=== PATIENT | female | born 1940 | race Caucasian/White ===

== ENCOUNTER 2019-01-04 07:44 | Emergency (ER) | payer MEDICARE ==
[~2019-01-04] VITALS: Ht 162.6 cm; Wt 81.7 kg
[~2019-01-04 07:44] MED LIST: ALPR.5; ATOR10; BUSP15; CARB150; CARBLEV25 PO; CLON.5 PO; CODACE30 PO; CODACE60 PO; DIAZ5; FURO20 PO; HYDACE5 PO; IBUHYD PO; LEVCAR2510 PO; LEVSOD125; LEVSOD125 PO; MELO7.5 PO; OXYACE7.5T PO; OXYC40ER; OXYC5; Prevacid Soluta30 MG JT; SIMV40 PO; TRIHEXYPHEN; TRIHEXYPHEN PO; VENL150ER PO; VENL75; VICODIN 5-3001 EACH PO; Zanaflex2 M1 PO; [UNRECOGNIZED DRUG - OTHER] PO; [UNRECOGNIZED DRUG - REMARK]; [UNRECOGNIZED DRUG - REMARK]
[2019-01-04] MEDS ORDERED: HYDR1TAB94 PO (11:21)
== END 2019-01-04 11:30 | disposition home or self-care (01) ==
LOC: ER 07:44
DX: S42.411A Displaced simple supracondylar fracture without intercondylar fracture of right humerus, initial encounter for closed fracture (principal); S00.11XA Contusion of right eyelid and periocular area, initial encounter; E03.9 Hypothyroidism, unspecified; E78.5 Hyperlipidemia, unspecified; Z87.891 Personal history of nicotine dependence; Z88.8 Allergy status to other drugs, medicaments and biological substances; Z79.899 Other long term (current) drug therapy; W01.10XA Fall on same level from slipping, tripping and stumbling with subsequent striking against unspecified object, initial encounter
CPT/HCPCS: 29105; 70450; 73080; 96372-59; 99284-25; A9270-GY; J1170

== ENCOUNTER 2019-01-08 06:59 | Observation (INO) | payer MEDICARE ==
[~2019-01-08] VITALS: Ht 162.6 cm; Wt 79.5 kg
[~2019-01-08 06:59] MED LIST changes: +HYDR1TAB94 PO
--- NOTE | 2019-01-08 13:01 | NUR ---
Ambulatory in Day Surgery. History, Chart, Medications and Allergies reviewed before start of procedure. Lungs clear T/O to Auscultation. Patient confirms NPO status and agrees with scheduled surgery. Pre-Op teaching done. Pt verbalizes understanding.
--- NOTE | 2019-01-08 18:31 | NUR ---
DAY SURGERY RN | Admit Call to Dr. Malave regarding patient O2 sats at 90% on 4 L NC since this RN can't discharge patient with sats at that level (174). Dr. Malave stated that he "couldn't admit the patient, but could consult with the hospitalist". Order placed for hospitalist consult. Krysten PERFORATOR OPERATOR OIL WELL with Dr. Krause came and saw the patient and decided to admit (ER stated consult doctor was Dr. Dowd). Call placed to nursing loading supervisor for room placement at 1800. Patient currently at 3 L NC satting at 93%.
--- NOTE | 2019-01-08 18:42 | NUR ---
"DAY SURGERY RN | TOLERATING PO FLUIDS"
--- NOTE | 2019-01-08 19:22 | NUR ---
DAY SURGERY RN | TO FLOOR This RN gave report to Ilsa Fam RN. Patient sitting up in bed tolerating PO fluids. States "in a lot of pain". A/O, but forgetful. Family at bedside. Good circulation in fingers. Belonings returned to patient. Treated for pain per Anesthesia orders. Taken to floor via gurnery by this RN. 3 L NC.
[2019-01-08 20:41] LABS: BASOPHILS ABSOLUTE AUTO 0.02 K/mm3 (0.00-0.23); BASOPHILS PERCENT AUTO 0 % (0-2); EOSINOPHILS PERCENT AUTO 0 % (0-6); Hematocrit 36.8 % (33.0-51.0); Hemoglobin 12.3 g/dL (11.5-16.0); IMMATURE GRAN ABSOLUTE AUTO 0.08 K/mm3 (0.00-0.10); IMMATURE GRAN PERCENT AUTO 1 % (0-1); LYMPHOCYTES ABSOLUTE AUTO 0.52 K/mm3 (0.84-5.20); LYMPHOCYTES PERCENT AUTO 3 % (21-46); MONOCYTES ABSOLUTE AUTO 0.75 K/mm3 (0.16-1.47); MONOCYTES PERCENT AUTO 5 % (4-13); Mean Corpuscular HGB Conc 33.4 g/dL (31.5-36.5); Mean Corpuscular Volume 93 fL (80-100); Mean Platelet Volume 10.8 fL (9.1-12.4); NEUTROPHILS PERCENT AUTO 92 % (41-73); Platelet Count 355 K/mm3 (150-400); RDW Coefficient Variation 12.4 % (11.7-14.2); RDW Standard Deviation 42.5 fL (35.1-46.3); Red Blood Cell Count 3.97 M/mm3 (3.80-5.20); White Blood Cell Count 16.17 K/mm3 (4.00-11.30)
[2019-01-08 21:14] LABS: Anion Gap 7 mmol/L (6-16); Blood Urea Nitrogen 16 mg/dL (8-24); Bun/Creatinine Ratio 36.8 (12.0-20.0); CO2, Blood 27 mmol/L (21-32); Calcium, Blood 8.5 mg/dL (8.5-10.1); Chloride, Blood 104 mmol/L (98-108); Creatinine, Blood 0.44 mg/dL (0.40-1.00); Glomerular Filtration Rate >60 (60-); Glucose, Blood 182 mg/dL (70-99); Potassium, Blood 3.4 mmol/L (3.5-5.5); Sodium, Blood 138 mmol/L (136-145)
--- NOTE | 2019-01-08 22:23 | NUR ---
PATIENT ARRIVED FROM DAYSURGERY TO 213 @1915. sHE IS AWAKE ENOUGH TO WALK FROM THE GURNEY TO THE BED. HE RT ARM IS BROOK WRAPPED FROM WRIST TO MID HUMEROUS. THE BROOK WRAP IS TIGHT AROUND HER THUMB AND CAUSING A DEEP CREASE AND SWELLING. THE PORTION OF BROOK WRAP THAT WAS DIRECTED THROUGH THE THUMB WAS ADJUSTED TO RELIEVE THE PRESSURE ON HER RT THUMB. RT HAD MENDEL MODERATED AMOUNT OF BRUISING AND EDEMA, NON PITTING. SHE IS STATING 8/10 PAIN IN HER BACK (RT sHOULDER BLADE) AND RT ARM. dAUGHTER ACCOMPANIED HER TO THE ROOM. PATIENT IS ABLE TO DRINK FLUIDS WITHOUT ISSUE. SHE IS AWAKE AND AWARE OF HER SITUATION. SHE IS ON 3L NC O2 WITH SATURATIONS IN THE MID TO HIGH 90'S.
--- NOTE | 2019-01-08 22:35 | NUR ---
@2140 BRITNI VALEROP WAS NOTIFIED OF HIGH BLOOD PRESSURE. NO ORDERS FOR NOW. WILL CALL IF SYMPTOMATIC OR SBP>220. UPDATE BP 159/95 @2230
--- NOTE | 2019-01-09 04:32 | NUR ---
NO ACUTE CHANGES, PAIN IS CONTROLED WITH PO MEDICATIONS, BLOOD PRESSURE IS NORMALIZED @144/69. pOTASSIUM iV INFUSION AT 10MEQ/HOUR X 4 HOURS STARTED.
[2019-01-09 07:29] LABS: BASOPHILS ABSOLUTE AUTO 0.03 K/mm3 (0.00-0.23); BASOPHILS PERCENT AUTO 0 % (0-2); EOSINOPHILS PERCENT AUTO 0 % (0-6); Hematocrit 36.3 % (33.0-51.0); IMMATURE GRAN ABSOLUTE AUTO 0.02 K/mm3 (0.00-0.10); IMMATURE GRAN PERCENT AUTO 0 % (0-1); LYMPHOCYTES ABSOLUTE AUTO 1.78 K/mm3 (0.84-5.20); LYMPHOCYTES PERCENT AUTO 21 % (21-46); MONOCYTES ABSOLUTE AUTO 1.25 K/mm3 (0.16-1.47); MONOCYTES PERCENT AUTO 15 % (4-13); Mean Corpuscular HGB 30.8 pg (26.0-34.0); Mean Corpuscular HGB Conc 33.1 g/dL (31.5-36.5); Mean Corpuscular Volume 93 fL (80-100); Mean Platelet Volume 10.6 fL (9.1-12.4); NEUTROPHILS ABSOLUTE AUTO 5.34 K/mm3 (1.96-9.15); NEUTROPHILS PERCENT AUTO 64 % (41-73); Platelet Count 348 K/mm3 (150-400); RDW Coefficient Variation 12.5 % (11.7-14.2); RDW Standard Deviation 42.5 fL (35.1-46.3); White Blood Cell Count 8.42 K/mm3 (4.00-11.30)
[2019-01-09 07:51] LABS: Anion Gap 7 mmol/L (6-16); Blood Urea Nitrogen 13 mg/dL (8-24); Bun/Creatinine Ratio 29.4 (12.0-20.0); CO2, Blood 27 mmol/L (21-32); Calcium, Blood 8.5 mg/dL (8.5-10.1); Chloride, Blood 104 mmol/L (98-108); Creatinine, Blood 0.44 mg/dL (0.40-1.00); Glomerular Filtration Rate >60 (60-); Glucose, Blood 123 mg/dL (70-99); Sodium, Blood 138 mmol/L (136-145)
--- NOTE | 2019-01-09 15:57 | NUR ---
D/C SUMMARY PT D/C TO HOME WITH FAMILY. GAIT BELT, INSTRUCTIONS AND RX WERE SENT WITH PATIENT. PT ESCORTED TO VEHICLE VIA W/C. VSS, RESPIRATIONS UNLABORED. PT ENC TO F/U [facility] FOR ANY PROBLEMS OR CONCERNS.
== END 2019-01-09 15:43 | disposition home or self-care (01) ==
LOC: ORD 06:59 → ORSCMMR 06:59 → ORD 09:30 → ORSCMMR 10:54 → ORD 11:00 → SURS 19:40 → ORSCMMR 19:41 → SURS 01-09 15:43
PROVIDERS: Nurse Practitioner Acute Care; ADMIT Orthopaedic Surgery
PROC: 01S40ZZ Reposition Ulnar Nerve, Open Approach (ICD-10-PCS; principal; 2019-01-08 13:00)
PROC: 0PSF04Z Reposition Right Humeral Shaft with Internal Fixation Device, Open Approach (ICD-10-PCS; principal; 2019-01-08 13:00)
DX: S42.401A Unspecified fracture of lower end of right humerus, initial encounter for closed fracture (principal); E78.5 Hyperlipidemia, unspecified; E87.6 Hypokalemia; E03.9 Hypothyroidism, unspecified; D72.829 Elevated white blood cell count, unspecified; R09.02 Hypoxemia; G20 Parkinson's disease; R29.6 Repeated falls; Z87.891 Personal history of nicotine dependence; Z88.8 Allergy status to other drugs, medicaments and biological substances; Z79.899 Other long term (current) drug therapy; W18.30XA Fall on same level, unspecified, initial encounter
CPT/HCPCS: 36415; 71045; 80048; 84145; 85025; 93005; 93010; 96365; 96366; 96375; 97110; 97116; 97162; 97166; A9270; A9270-GY; C1713; G0378; J0690; J1100; J1170; J2405; J2704; J3010; J3480; J7040; J7120

== ENCOUNTER 2019-07-02 14:37 | Inpatient (IN) | payer MEDICARE ==
[~2019-07-02] VITALS: Ht 160 cm; Wt 74.8 kg
[~2019-07-02 14:37] MED LIST changes: -CARB150
[2019-07-02 15:38] LABS: Source, Urine Catheter
[2019-07-02 15:40] LABS: Bilirubin, Urine Neg (Neg); Blood, Urine 3+ (Neg); Glucose Qualitative, Urine Neg (Neg); Ketones, Urine 1+ (Neg); Leukocyte Esterase, Urine 1+ (Neg); Nitrite, Urine Pos (Neg); Protein, Urine 2+ (Neg); Specific Gravity, Urine 1.025 (1.003-1.022); Urobilinogen, Urine NORM (Normal)
[2019-07-02 15:46] LABS: Appearance, Urine Hazy (Clear); Color, Urine Yellow (P-Yellow)
[2019-07-02 15:51] LABS: Bacteria Many /hpf; Squamous Epithelial Cells Few /hpf (Few); White Blood Cells, Urine 25-50 /hpf (0-5)
[2019-07-02 17:42] LABS: BASOPHILS ABSOLUTE AUTO 0.05 K/mm3 (0.00-0.23); BASOPHILS PERCENT AUTO 0 % (0-2); EOSINOPHILS ABSOLUTE AUTO 0.01 K/mm3 (0.00-0.68); EOSINOPHILS PERCENT AUTO 0 % (0-6); Hematocrit 38.7 % (33.0-51.0); Hemoglobin 12.9 g/dL (11.5-16.0); IMMATURE GRAN ABSOLUTE AUTO 0.09 K/mm3 (0.00-0.10); IMMATURE GRAN PERCENT AUTO 1 % (0-1); LYMPHOCYTES ABSOLUTE AUTO 0.96 K/mm3 (0.84-5.20); LYMPHOCYTES PERCENT AUTO 5 % (21-46); MONOCYTES ABSOLUTE AUTO 0.78 K/mm3 (0.16-1.47); MONOCYTES PERCENT AUTO 4 % (4-13); Mean Corpuscular HGB 30.1 pg (26.0-34.0); Mean Corpuscular HGB Conc 33.3 g/dL (31.5-36.5); Mean Corpuscular Volume 90 fL (80-100); Mean Platelet Volume 11.2 fL (9.1-12.4); NEUTROPHILS ABSOLUTE AUTO 16.57 K/mm3 (1.96-9.15); NEUTROPHILS PERCENT AUTO 90 % (41-73); Platelet Count 259 K/mm3 (150-400); RDW Coefficient Variation 13.1 % (11.7-14.2); RDW Standard Deviation 42.9 fL (35.1-46.3); Red Blood Cell Count 4.29 M/mm3 (3.80-5.20); White Blood Cell Count 18.46 K/mm3 (4.00-11.30)
[2019-07-02 18:00] LABS: Albumin, Blood 3.9 g/dL (3.4-5.0); Anion Gap 7 mmol/L (6-16); Blood Urea Nitrogen 14 mg/dL (8-24); Bun/Creatinine Ratio 39.4 (12.0-20.0); CO2, Blood 26 mmol/L (21-32); Calcium, Blood 8.5 mg/dL (8.5-10.1); Chloride, Blood 109 mmol/L (98-108); Creatinine, Blood 0.36 mg/dL (0.40-1.00); Glomerular Filtration Rate >60 (60-); Glucose, Blood 144 mg/dL (70-99); Phosphorus, Blood 3.9 mg/dL (2.5-4.9); Potassium, Blood 3.2 mmol/L (3.5-5.5); Sodium, Blood 142 mmol/L (136-145)
[2019-07-02 18:02] LABS: Prothrombin Time Results 10.7 Sec (9.7-11.5)
--- NOTE | 2019-07-02 18:44 | NUR ---
1800 ADMIT TO ROOM, PT ALERT AND ORIENTED, TELLS ME SHE IS FORGETFUL. REPORTS RIGHT HIP PAIN AND PAIN TO BACK OF HEAD POST FALL. ICE IN PLACE TO BACK OF HEAFD AND HIP.
--- NOTE | 2019-07-02 22:00 | NUR ---
REPOSITIONED, MEDICATED, AND ICE BAGS FRESHENED FOR COMFORT. SAFETY MEASURES IN PLACE. WILL CONTINUE TO MONITOR.
[2019-07-03 04:28] LABS: Hematocrit 33.6 % (33.0-51.0); Hemoglobin 11.1 g/dL (11.5-16.0); Mean Corpuscular HGB 29.8 pg (26.0-34.0); Mean Corpuscular Volume 90 fL (80-100); Mean Platelet Volume 11.4 fL (9.1-12.4); Platelet Count 222 K/mm3 (150-400); RDW Coefficient Variation 13.1 % (11.7-14.2); RDW Standard Deviation 43.2 fL (35.1-46.3); Red Blood Cell Count 3.72 M/mm3 (3.80-5.20); White Blood Cell Count 10.32 K/mm3 (4.00-11.30)
[2019-07-03 04:54] LABS: Anion Gap 7 mmol/L (6-16); Blood Urea Nitrogen 14 mg/dL (8-24); Bun/Creatinine Ratio 33.7 (12.0-20.0); CO2, Blood 28 mmol/L (21-32); Calcium, Blood 8.6 mg/dL (8.5-10.1); Chloride, Blood 108 mmol/L (98-108); Creatinine, Blood 0.42 mg/dL (0.40-1.00); Glomerular Filtration Rate >60 (60-); Glucose, Blood 115 mg/dL (70-99); Potassium, Blood 3.3 mmol/L (3.5-5.5); Sodium, Blood 143 mmol/L (136-145)
--- NOTE | 2019-07-03 06:16 | NUR ---
SHIFT SUMMARY LYING IN SEMI FOWLERS WITH EYES OPEN WHILE WATCHING TV. HAS BEEN RESTLESS AND RESTED WITH EYES CLOSED FOR APPROX 3HRS. HAS BEEN WATCHING TV SINCE ADMISSION. NPO PAST MN FOR SURGERY TODAY. SPOKE TO AND DAUGHTER WHO BOTH ENCOURAGED HER TO HAVE THE SURGERY, SHE VERBALIZED TO NURSING THAT SHE HAD DECIDED TO HAE THE SURGERY WITH THE HELP OF HER FAMILY. REQURIRES FREQUENT REPOSITIONING FOR COMFORT, TOLERATES WELL. DENIES FURTHER NEEDS OR WANTS AT THIS TIME. SAFETY MEASURES IN PLACE. WILL GIVE HAND OFF TO ONCOMING SHIFT USING SBAR DURING BEDSIDE REPORT.
--- NOTE | 2019-07-03 07:00 | NUR ---
recvd report from previous shift rn dejan, pt asleep in bed, bed in lowest position, bed rails up x 2, call light within reach.
--- NOTE | 2019-07-03 10:10 | NUR ---
pt's daughter update via telephone. dr finnegan rounded on pt approx [phone], will notify pt's of surgical results. this RN notified pt's daughter of expected provider call.
--- NOTE | 2019-07-03 13:59 | NUR ---
pt transported to daysurgery on her own bed by 2 daysurgery RNs
--- NOTE | 2019-07-03 15:38 | NUR ---
Surgical site prepped with 2% Chlorhexidine cloth wipe. History, Chart, Medications and Allergies reviewed before start of procedure.Lungs clear T/O to Auscultation. Pre-Op teaching done. Pt verbalizes understanding.
--- NOTE | 2019-07-03 16:13 | NUR ---
pt's daughter called for update. this RN reported pt is still in surgery.
--- NOTE | 2019-07-03 18:00 | NUR ---
shift summary: vss, no acute changes. pt independent in room, showered himself, BM x 1, voided >500ml dark urine. pt encouraged to increase PO intake as tolerated. pt states pain controlled per MAR to the point that he may rest. pt tolerated clear liquid diet, reports no n/v. BT hypoactive and distant.
--- NOTE | 2019-07-03 18:36 | NUR ---
shift summary: pt returned from PACU following surgical intervention nailing at 1815, confused per baseline, possibly augmented r/t medications given during procedure, reorients, answers questions, bed alarm in place. VSS, 114 HR, asymptomatic. pt denies pain, wiggles toes, good cap refill operative limb, denies calf pain. Bulky gauze with tape dressing R hip x 2 c/d/i, no shadowing. Assisted pt to call her daughter for update.
[2019-07-04 04:06] LABS: BASOPHILS ABSOLUTE AUTO 0.01 K/mm3 (0.00-0.23); BASOPHILS PERCENT AUTO 0 % (0-2); EOSINOPHILS PERCENT AUTO 0 % (0-6); Hematocrit 29.4 % (33.0-51.0); Hemoglobin 9.6 g/dL (11.5-16.0); IMMATURE GRAN ABSOLUTE AUTO 0.04 K/mm3 (0.00-0.10); IMMATURE GRAN PERCENT AUTO 0 % (0-1); LYMPHOCYTES ABSOLUTE AUTO 1.01 K/mm3 (0.84-5.20); LYMPHOCYTES PERCENT AUTO 8 % (21-46); MONOCYTES ABSOLUTE AUTO 1.07 K/mm3 (0.16-1.47); MONOCYTES PERCENT AUTO 9 % (4-13); Mean Corpuscular HGB 29.9 pg (26.0-34.0); Mean Corpuscular HGB Conc 32.7 g/dL (31.5-36.5); Mean Corpuscular Volume 92 fL (80-100); Mean Platelet Volume 11.7 fL (9.1-12.4); NEUTROPHILS PERCENT AUTO 82 % (41-73); Platelet Count 215 K/mm3 (150-400); RDW Coefficient Variation 13.1 % (11.7-14.2); RDW Standard Deviation 43.3 fL (35.1-46.3); Red Blood Cell Count 3.21 M/mm3 (3.80-5.20); White Blood Cell Count 12.03 K/mm3 (4.00-11.30)
[2019-07-04 04:30] LABS: Anion Gap 6 mmol/L (6-16); Blood Urea Nitrogen 9 mg/dL (8-24); Bun/Creatinine Ratio 20.8 (12.0-20.0); CO2, Blood 27 mmol/L (21-32); Calcium, Blood 8.3 mg/dL (8.5-10.1); Chloride, Blood 107 mmol/L (98-108); Creatinine, Blood 0.43 mg/dL (0.40-1.00); Glomerular Filtration Rate >60 (60-); Glucose, Blood 140 mg/dL (70-99); Magnesium, Blood 1.9 mg/dL (1.6-2.4); Potassium, Blood 3.7 mmol/L (3.5-5.5); Sodium, Blood 140 mmol/L (136-145)
--- NOTE | 2019-07-04 05:08 | NUR ---
SUMMARY PT DENIES PAIN.SLEPT OFF AND ON TONIGHT. ANXIOUS TO START P.T. DESIRES TO GO HOME SOON POSSIBLE.
--- NOTE | 2019-07-04 07:00 | NUR ---
recvd report from previous shift jesse Balderas pt awake in bed, a/o to 4, forgetful and occasionally voices "strange" statements about surroundings, but follows directions well, reorients well. bed in lowest position, bed rails up x 2, call light within reach.
--- NOTE | 2019-07-04 08:30 | NUR ---
PT working with pt, pt up in chair.
--- NOTE | 2019-07-04 10:05 | NUR ---
dr chandra rounding on pt.
--- NOTE | 2019-07-04 11:15 | NUR ---
dr finnegan rounding on pt
--- NOTE | 2019-07-04 19:26 | NUR ---
shift summary: vss, no acute changes. pt remained pleasant/cooperative, oriented to self/family/situation to her baseline, occasionally will exhibit confuses behaviors and statements but reorients well. Pt worked with physical therapy today, was up in recliner for breakfast and lunch. upon transfer back to bed, pt has difficulty following precautions. dotson catheter removed at 1330, pt unable to void by 1800, notified oral surgery technician RN. pt tolerated PO intake, no n/v. pt states pain is controlled per MAR, no grimace.
[2019-07-05 04:25] LABS: Hematocrit 25.9 % (33.0-51.0); Hemoglobin 8.4 g/dL (11.5-16.0); Mean Corpuscular HGB Conc 32.4 g/dL (31.5-36.5); Mean Corpuscular Volume 93 fL (80-100); Mean Platelet Volume 11.8 fL (9.1-12.4); Platelet Count 189 K/mm3 (150-400); RDW Coefficient Variation 13.1 % (11.7-14.2); RDW Standard Deviation 44.7 fL (35.1-46.3); White Blood Cell Count 10.08 K/mm3 (4.00-11.30)
--- NOTE | 2019-07-05 06:28 | NUR ---
SHIFT SUMMARY: LIZZ IS ALERT AND ORIENTED TO SELF AND FOLLOWS DIRECTIONS. SHE REORIENTS EASILY. SHE IS CONTINENT/INCONTINENT OF BLADDER. THE HAUSER WAS REMOVED YESTERDAY AND SHE HAS BEEN ABLE TO URINATE IN THE BEDPAN. SHE DID PICK AT THE DISTAL AQUACELL WHICH WAS CONSEQUENTLY REPLACED, JYOTHI INTACT WITH NO SIGNS OF DAMAGE. IV PATENT. SHE IS TOLERATING PO INTAKE WELL. SHE IS LYING IN BED WITH HER CALL LIGHT WITHIN REACH. WILL REPORT TO DAY SHIFT RN.
--- NOTE | 2019-07-05 09:55 | NUR ---
DISCHARGE PT DISCHARGED TO [facility] AT APPROX 0940. DISCHARGE PACKET + [facility] + [employer]ESS[employer] SENT WITH PT AND TRANSPORT. IV DC'D. ALL PERSONAL BELONGINGS SENT WITH PT. GEOPHYSICAL COMPUTER NOTIFIED PT'S FAMILY OF SNF TRANSFER.
[2019-07-06] MEDS ORDERED: DOCU100 PO (07:23)
[2019-07-06] MEDS ORDERED: CEFU500T30 PO (07:24)
[2019-07-06] MEDS ORDERED: SENNA LAXATIVE8.6 MG PO (07:24)
[2019-07-06] MEDS ORDERED: EUTHYROX125 MCG PO (12:17)
[2019-07-06] MEDS ORDERED: Trihexyphenidyl2 MG PO (12:18)
[2019-07-06] MEDS ORDERED: EFFEXOR XR150 MG PO (12:18)
[2019-07-06] MEDS ORDERED: Carbidopa-Levo1 EAC1 PO ×2 (12:18)
[2019-07-06] MEDS ORDERED: Simvastatin40 MG PO (12:18)
[2019-07-06] MEDS ORDERED: LANSOPRAZOLE30 MG PO (12:18)
[2019-07-06] MEDS ORDERED: HYDROCODONE-AC1 EAC1 PO (12:19)
[2019-07-08] MEDS ORDERED: CEFU250T47 PO (11:25)
[2019-07-08] MEDS ORDERED: MIRALAX17 GM PO (11:26)
== END 2019-07-05 09:43 | DRG 481 ==
LOC: ER 14:37 → SURS 15:46
PROVIDERS: Emergency Medicine; Orthopaedic Surgery; ADMIT Internal Medicine
PROC: 0QS634Z Reposition Right Upper Femur with Internal Fixation Device, Percutaneous Approach (ICD-10-PCS; principal; 2019-07-03 15:30)
DX: S72.141A Displaced intertrochanteric fracture of right femur, initial encounter for closed fracture (principal); N39.0 Urinary tract infection, site not specified; G20 Parkinson's disease; F02.80 Dementia in other diseases classified elsewhere, unspecified severity, without behavioral disturbance, psychotic disturbance, mood disturbance, and anxiety; E03.9 Hypothyroidism, unspecified; K21.9 Gastro-esophageal reflux disease without esophagitis; F32.9 Major depressive disorder, single episode, unspecified; E78.00 Pure hypercholesterolemia, unspecified; B96.20 Unspecified Escherichia coli [E. coli] as the cause of diseases classified elsewhere; S00.03XA Contusion of scalp, initial encounter; W01.0XXA Fall on same level from slipping, tripping and stumbling without subsequent striking against object, initial encounter; Z91.81 History of falling; Z87.891 Personal history of nicotine dependence
CPT/HCPCS: 36415; 51702; 70450; 71045; 73502; 73700; 76377; 80048; 80069; 81001; 83735; 85025; 85027; 85610; 85730; 87077; 87086; 87186; 93005; 93010; 96361-59; 96374-59; 96375-59; 96376-59; 97110; 97162; 97166; 97530; 99285-25; A9270-GY; C1713; C1769; J0690; J0696; J1100; J1170; J1650; J2370; J2405; J2704; J3010; J3370; J3480; J7030; J7120